=== PATIENT | female | born 1955 | race Caucasian/White ===

== ENCOUNTER → 2018-05-04 | Outpatient (CLI) | payer BC ==
[2018-05-04 11:03] LABS: ANION GAP 13 (5-19); BLOOD UREA NITROGEN 8 mg/dL (7-20); CALCIUM 9.8 mg/dL (8.4-10.2); CARBON DIOXIDE 29 mmol/L (22-30); CHLORIDE 97 mmol/L (98-107); GLUCOSE 93 mg/dL (75-110); SODIUM 138.7 mmol/L (137-145)
== END ==
LOC: OD 09:59
PROVIDERS: ATTEND Orthopaedic Surgery
DX: Z01.810 Encounter for preprocedural cardiovascular examination (principal); Z01.812 Encounter for preprocedural laboratory examination
CPT/HCPCS: 36415; 80048

== ENCOUNTER → 2018-05-06 | Outpatient (CLI) | payer BC ==
--- NOTE | 2018-05-08 10:11 | EKG REPORT ---
SEVERITY:- BORDERLINE ECG - SINUS RHYTHM VENTRICULAR PREMATURE COMPLEX BORDERLINE T ABNORMALITIES, INFERIOR LEADS : Confirmed by: Phyllis Pratt 08-May-2018 10:11:10
== END ==
LOC: OD 09:07
PROVIDERS: ATTEND Orthopaedic Surgery
DX: Z01.810 Encounter for preprocedural cardiovascular examination (principal); Z01.812 Encounter for preprocedural laboratory examination; Z01.818 Encounter for other preprocedural examination; M25.562 Pain in left knee
CPT/HCPCS: 36415; 84132; 93010

== ENCOUNTER → 2018-09-23 | Outpatient (CLI) | payer BC ==
--- NOTE | 2018-09-23 12:22 | RADIOLOGY REPORT (SQ) ---
EXAM DESCRIPTION: CHEST PA/LATERAL COMPLETED DATE/TIME: 09/23/2018 11:55 am REASON FOR STUDY: PRE-OP COMPARISON: None. EXAM PARAMETERS: NUMBER OF VIEWS: two views TECHNIQUE: Digital Frontal and Lateral radiographic views of the chest acquired. RADIATION DOSE: NA LIMITATIONS: none FINDINGS: LUNGS AND PLEURA: No opacities, masses or pneumothorax. No pleural effusion. MEDIASTINUM AND HILAR STRUCTURES: No masses or contour abnormalities. HEART AND VASCULAR STRUCTURES: Heart normal size. No evidence for failure. BONES: No acute findings. HARDWARE: None in the chest. OTHER: Breast implants. IMPRESSION: NO SIGNIFICANT RADIOGRAPHIC FINDING IN THE CHEST. TECHNICAL DOCUMENTATION: JOB ID: [id number] [employer]- All Rights Reserved Reading location - IP/workstation name: [email or web address]
[2018-09-23 12:49] LABS: ABSOLUTE EOSINOPHILS # (AUTO) 0.1 10^3/uL (0.0-0.6); ABSOLUTE LYMPHOCYTES (AUTO) 0.5 10^3/uL (0.5-4.7); ABSOLUTE MONOCYTES (AUTO) 0.3 10^3/uL (0.1-1.4); ABSOLUTE NEUT (AUTO) 2.7 10^3/uL (1.7-8.2); BASOPHILS % (AUTO) 0.6 % (0-2); EOSINOPHILS % (AUTO) 2.7 % (0-6); HEMATOCRIT 42.1 % (36.0-47.0); HEMOGLOBIN 14.9 g/dL (12.0-15.5); LYMPHOCYTES % (AUTO) 14.9 % (13-45); MEAN CORPUSCULAR HEMOGLOBIN 31.2 pg (27.0-33.4); MEAN CORPUSCULAR HGB CONC 35.3 g/dL (32.0-36.0); MEAN CORPUSCULAR VOLUME 88 fl (80-97); MONOCYTES % (AUTO) 7.6 % (3-13); PLATELET COUNT 112 10^3/uL (150-450); RED BLOOD COUNT 4.76 10^6/uL (3.72-5.28); RED CELL DISTRIBUTION WIDTH 13.1 % (11.5-14.0); SEGMENTED NEUTROPHILS % (AUTO) 74.2 % (42-78); TOTAL CELLS COUNTED % (AUTO) 100 %; WHITE BLOOD COUNT 3.6 10^3/uL (4.0-10.5)
[2018-09-23 12:53] LABS: APPEARANCE,URINE SLIGHTLY-CLOUDY; BILIRUBIN,URINE NEGATIVE (NEGATIVE); COLOR,URINE YELLOW; GLUCOSE, URINE NEGATIVE (NEGATIVE); KETONES,URINE NEGATIVE (NEGATIVE); LEUKOCYTE ESTERASE,URINE TRACE (NEGATIVE); NITRITE,URINE NEGATIVE (NEGATIVE); PROTEIN,URINE NEGATIVE (NEGATIVE); URINE SPECIFIC GRAVITY 1.015
--- NOTE | 2018-09-23 12:57 | EKG REPORT ---
SEVERITY:- BORDERLINE ECG - SINUS RHYTHM NONSPECIFIC ST-T CHANGES INFERIOR LEADS : Confirmed by: Tee Novoa MD 23-Sep-2018 12:56:27
[2018-09-23 13:13] LABS: ANION GAP 11 (5-19); BLOOD UREA NITROGEN 9 mg/dL (7-20); CALCIUM 9.1 mg/dL (8.4-10.2); CARBON DIOXIDE 21 mmol/L (22-30); CHLORIDE 107 mmol/L (98-107); GLUCOSE 93 mg/dL (75-110); POTASSIUM 4.3 mmol/L (3.6-5.0); SODIUM 138.9 mmol/L (137-145)
== END ==
LOC: OD 11:16
PROVIDERS: ATTEND Orthopaedic Surgery
DX: Z01.810 Encounter for preprocedural cardiovascular examination (principal)
CPT/HCPCS: 36415; 71046; 80048; 81001; 85025; 93005; 93010

== ENCOUNTER 2018-10-12 05:43 | Day surgery (SDC) | payer BC ==
[~2018-10-12 05:43] MED LIST: BUPIVACAINE INJ/PF LIPOSOME/PF 266 MG/20 ML SDV INJ PRN; CEFAZOLIN INJ 1 GM VIAL IV PRN; CEFAZOLIN INJ 1 GM VIAL ONE; IBUPROFEN 800 MG in NORMAL SALINE 250 ML IV PRN; LACTATED RINGERS 1000 ML IV PRN; LANSOPRAZOLE 15 MG TAB.RAP.DR ONE; LANSOPRAZOLE 15 MG TAB.RAP.DR PO PRN; LIDOCAINE 0.5% INJ-PF (5 MG/ML) 50 ML SDV SUBCUT PRN; OXYCODONE HCL SR 10 MG TABLET PO ONE; OXYCODONE HCL SR 10 MG TABLET PO PRN; VANCOMYCIN HCL 1,000 MG in DEXTROSE 5%-WATER 250 ML IV PRN
[2018-10-12] MEDS ORDERED: ONDANSETRON HCL INJ/PF 4 MG/2 ML SDV ONE (06:49)
[2018-10-12] MEDS ORDERED: PROPOFOL INJ 200 MG/20 ML VIAL IV ONE (06:49)
[2018-10-12] MEDS ORDERED: FENTANYL CITRATE INJ/PF 100 MCG/2 ML AMPUL ONE (06:49)
[2018-10-12] MEDS ORDERED: PROMETHAZINE HCL INJ 25 MG/1 ML VIAL ONE (06:49)
[2018-10-12] MEDS ORDERED: MIDAZOLAM 2 MG/2 ML INJ ONE (06:49)
[2018-10-12] MEDS ORDERED: EPHEDRINE SULFATE INJ 50 MG/1 ML AMPULE ONE (06:49)
[2018-10-12] MEDS ORDERED: ACETAMINOPHEN 1,000 MG/100 ML RTUPB IV ONE (06:49)
[2018-10-12] MEDS ORDERED: BUPIVACAINE HCL 0.5%-EPI 1:200000 INJ/PF 30 ML VIAL ONE (06:56)
[2018-10-12] MEDS ORDERED: THROMBIN (BOVINE) TOPICAL 20000 UNIT VIAL ONE (06:56)
[2018-10-12] MEDS ORDERED: THROMBIN (BOVINE) 5000 UNIT EPITAXIS KIT ONE (06:56)
[2018-10-12] MEDS ORDERED: SCOPOLAMINE HYDROBROMIDE 1.5 MG PATCH.TD72 ONE (07:24)
[2018-10-12] MEDS ORDERED: MEPERIDINE HCL/PF INJ 25 MG/1 ML DISP.SYRIN IV PRN (08:28)
[2018-10-12] MEDS ORDERED: PROMETHAZINE HCL INJ 25 MG/1 ML VIAL IV PRN ×2 (08:28)
[2018-10-12] MEDS ORDERED: FENTANYL CITRATE INJ/PF 100 MCG/2 ML AMPUL IV PRN ×3 (08:28)
[2018-10-12] MEDS ORDERED: MORPHINE SULFATE 10 MG/ML INJ IV PRN ×4 (08:28→08:36)
[2018-10-12] MEDS ORDERED: DIPHENHYDRAMINE HCL 50 MG/ML VIAL IV PRN ×2 (08:28→08:36)
[2018-10-12] MEDS ORDERED: MAG HYDROX/AL HYDROX/SIMETH SUSP 30 ML UDCUP PO PRN (08:36)
[2018-10-12] MEDS ORDERED: RINGERS SOLUTION,LACTATED 1,000 ML IV PRN (08:36)
[2018-10-12] MEDS ORDERED: OXYCODONE HCL IR 5 MG TABLET PO PRN (08:36)
[2018-10-12] MEDS ORDERED: ONDANSETRON HCL INJ/PF 4 MG/2 ML SDV IV PRN (08:36)
[2018-10-12] MEDS ORDERED: ACETAMINOPHEN 325 MG TABLET PO PRN (08:36)
[2018-10-12] MEDS ORDERED: ZOLPIDEM TARTRATE 5 MG TABLET PO PRN (08:36)
[2018-10-12] MEDS ORDERED: ONDANSETRON 4 MG TAB.RAPDIS PO PRN (08:36)
--- NOTE | 2018-10-12 08:42 | Operative Report ---
Operative Report DATE OF SURGERY: 10/12/18 PREOPERATIVE DIAGNOSIS: Left knee arthritis OPERATION: Left knee arthroplasty SURGEON: ROSEMARIE DORADO ANESTHESIA: Spinal TISSUE REMOVED OR ALTERED: Bone to pathology ESTIMATED BLOOD LOSS: 100 PROCEDURE: Implants used: Femur: Misa triathlon size 5 CR uncemented Tibia: 5 uncemented Tibial liner: 9 mm CS insert Patella: 85 mm uncemented patella Procedure with the patient supine on the operating table the left the limb is prepped and draped in a sterile fashion. The limb was elevated for exsanguination and the tourniquet inflated to 280 torr. A standard midline median parapatellar approach the knee is taken. Access is gained to the femoral canal through the intercondylar notch. Intramedullary alignment instrumentation used to resect 10 mm of distal femur in 5 of valgus. Sizing guide indicated a size 5 femur. Appropriate cutting jig is then used to fashion anterior posterior and chamfer cuts. A trial reduction femurs performed and this is judged to be adequate. Attention was next turned to the tibia. Using an extra medullary alignment system 9 millimeters was resected off the lateral tibial plateau. This is sized to a size 5 tibia. A trial reduction was now performed with a 5 femur and a 5 tibia using a[] millimeters spacer. It is full extension and central patellofemoral tracking. The articular surface the patella was next resected using an oscillating saw. All trial implants were removed. the above implants are impacted into place. the tourniquet was deflated hemostasis obtained the wound is then closed in layers using interrupted Vicryl followed by peggy. A sterile compressive dressing was applied and the patient returned to recovery room in satisfactory condition.
[2018-10-12] MEDS ORDERED: TRANEXAMIC ACID INJ/PF 1,000 MG/10 ML SDV IV ONE ×2 (08:46→10:01)
[2018-10-12] MEDS ORDERED: TRANEXAMIC ACID INJ/PF 1,000 MG/10 ML SDV IV PRN (08:54)
--- NOTE | 2018-10-12 09:46 | RADIOLOGY REPORT (SQ) ---
EXAM DESCRIPTION: KNEE LEFT 2 VIEWS COMPLETED DATE/TIME: 10/12/2018 9:30 am REASON FOR STUDY: Post OP -Long Cassette in PACU M17.12 UNILATERAL PRIMARY OSTEOARTHRITIS, LEFT KNE E COMPARISON: None. NUMBER OF VIEWS: Two view(s). TECHNIQUE: Digital radiographic images of the left knee post-procedure. LIMITATIONS: None. FINDINGS: BONES: No worrisome or unexpected findings post-procedure. DEVICE: Total knee arthroplasty. SOFT TISSUES: No worrisome findings. Expected postoperative soft tissue changes. IMPRESSION: SATISFACTORY POSTOPERATIVE LEFT KNEE. TECHNICAL DOCUMENTATION: JOB ID: [id number] [employer]- All Rights Reserved Reading location - IP/workstation name: [email or web address]
[2018-10-12] MEDS ORDERED: (PENDING PHARMACY ID) (Estradiol [Estradiol] 1 MG) PO SCH (10:00)
[2018-10-12] MEDS: TRANEXAMIC ACID INJ/PF 1,000 MG/10 ML SDV IV ONE ×2 (10:30→17:03)
[2018-10-12] MEDS: MORPHINE SULFATE 10 MG/ML INJ IV PRN ×3 (13:11→22:11)
[2018-10-12] MEDS: IBUPROFEN 800 MG in NORMAL SALINE 250 ML IV SCH (15:32)
[2018-10-12] MEDS ORDERED: FLUCONAZOLE 100 MG TABLET PO ONE (16:00)
[2018-10-12] MEDS: SENNOSIDES/DOCUSATE 8.6-50 MG 1 EACH TABLET PO SCH (17:31)
[2018-10-12] MEDS: OXYCODONE HCL SR 10 MG TABLET PO SCH (17:31)
[2018-10-12] MEDS ORDERED: ASPIRIN 81 MG TABLET, ENT COATED PO SCH (18:00)
[2018-10-12] MEDS ORDERED: VANCOMYCIN HCL 1,000 MG in DEXTROSE 5%-WATER 250 ML IV ONE (20:30)
[2018-10-13] MEDS: IBUPROFEN 800 MG in NORMAL SALINE 250 ML IV SCH ×2 (00:21→05:31)
[2018-10-13] MEDS: OXYCODONE HCL SR 10 MG TABLET PO SCH (05:29)
[2018-10-13] MEDS ORDERED: LANSOPRAZOLE 30 MG TAB.RAP.DR PO SCH (06:00)
[2018-10-13 06:08] LABS: HEMATOCRIT 32.3 % (36.0-47.0); HEMOGLOBIN 11.7 g/dL (12.0-15.5); MEAN CORPUSCULAR HEMOGLOBIN 31.6 pg (27.0-33.4); MEAN CORPUSCULAR HGB CONC 36.3 g/dL (32.0-36.0); MEAN CORPUSCULAR VOLUME 87 fl (80-97); RED BLOOD COUNT 3.71 10^6/uL (3.72-5.28); RED CELL DISTRIBUTION WIDTH 12.7 % (11.5-14.0); WHITE BLOOD COUNT 4.1 10^3/uL (4.0-10.5)
[2018-10-13 06:29] LABS: ANION GAP 9 (5-19); BLOOD UREA NITROGEN 13 mg/dL (7-20); CALCIUM 8.9 mg/dL (8.4-10.2); CARBON DIOXIDE 24 mmol/L (22-30); CHLORIDE 99 mmol/L (98-107); GLUCOSE 126 mg/dL (75-110); SODIUM 132.4 mmol/L (137-145)
--- NOTE | 2018-10-13 07:14 | PDOC DISCHARGE SUMMARY ---
General - Admit/Disc Date/PCP Admission Date/Primary Care Provider: 10/12/18 05:43 MELI SANDOVAL PA-C Discharge Date: 10/13/18 - Discharge Diagnosis (1) Arthritis of left knee Is this a current diagnosis for this admission?: Yes - Additional Information Resuscitation Status: Full Code Home Medications: Amlodipine Besylate [Norvasc 5 mg Tablet] 5 mg PO DAILY 09/24/18 Chlorpheniramine Maleate [Chlor-Trimeton Allergy 12 mg Tablet] 1 tab PO DAILYP PRN 09/24/18 Clonazepam [Klonopin] 0.5 mg PO BIDP PRN 09/24/18 Diclofenac Sodium [Voltaren] 1 applic TOP QID PRN 09/24/18 Estradiol 1 mg PO DAILY 09/24/18 Medroxyprogesterone Acetate [Provera] 2.5 mg PO DAILY 09/24/18 Omeprazole 20 mg PO BID 09/24/18 Sertraline HCl [Zoloft 50 mg Tablet] 100 mg PO DAILY 09/24/18 Tramadol HCl [Ultram] 50 mg PO TIDP PRN 09/24/18 Hydrochlorothiazide [Hydrodiuril 25 mg Tablet] 25 mg PO DAILY 10/12/18 History of Present Illness History of Present Illness: ELFEGO GALLEGOS is a 63 year old female 63-year-old white female with progressive left knee pain and functional disability second osteoarthritis. Patient is admitted for elective left knee arthroplasty. Hospital Course Hospital Course: Patient is admitted through the operating room where she undergoes an uncomplicated left knee arthroplasty. She is returned to floor in satisfactory condition. Initially there is some bleeding from her dressing and this is reinforced. She makes excellent progress with physical therapy and ablating 200 feet on the day of surgery. Dressing is changed on postop day 2. Wound is well approximated peggy. Is clean dry and intact. Physical Exam Vital Signs: Temp Pulse Resp BP Pulse Ox 36.9 C 78 18 114/69 98 10/12/18 23:28 10/12/18 23:28 10/12/18 19:38 10/12/18 23:28 10/12/18 23:28 Intake & Output 10/12/18 10/13/18 10/14/18 06:59 06:59 06:59 Intake Total 0 5543 Output Total 75 Balance 0 5468 Weight 78.93 kg 78 kg General appearance: PRESENT: no acute distress Head exam: PRESENT: normocephalic Respiratory exam: PRESENT: unlabored Cardiovascular exam: PRESENT: RRR Pulses: PRESENT: +1 pedal pulses bilateral Vascular exam: PRESENT: normal capillary refill GI/Abdominal exam: PRESENT: soft Rectal exam: PRESENT: deferred Extremities exam: PRESENT: other - Left knee dressing is changed on postop day 1. Was. Wound is well approximated peggy. Is clean dry and intact. Neurological exam: PRESENT: alert, awake, oriented to person, oriented to place, oriented to time, oriented to situation. ABSENT: motor sensory deficit Skin exam: PRESENT: dry, intact, warm. ABSENT: cyanosis, rash Results Laboratory Results: 10/13/18 05:50 10/13/18 05:50 Sodium 132.4 L Potassium 3.0 L* Chloride 99 Carbon Dioxide 24 Anion Gap 9 BUN 13 Creatinine 0.63 Est GFR ( Amer) > 60 Est GFR (Non-Af Amer) > 60 Glucose 126 H Calcium 8.9 Impressions: Knee X-Ray 10/12/18 08:38 IMPRESSION: SATISFACTORY POSTOPERATIVE LEFT KNEE. Status: Imported from [facility] - * PATIENT BEING DISCHARGED WITH ANY OF THE FOLLOWING DIAGNOSIS: No VTE patient discharged on overlapping Therapy?: Yes Plan Discharge Plan: Patient to be discharged home with home health services and DME. Follow-up with Dr. Calderon Romo [place] for surgery in 2 weeks for staple removal. Time Spent: Less than 30 Minutes
[2018-10-13 07:41] LABS: PLATELET COUNT 85 10^3/uL (150-450)
[2018-10-13] MEDS: SENNOSIDES/DOCUSATE 8.6-50 MG 1 EACH TABLET PO SCH (09:53)
[2018-10-13] MEDS ORDERED: PRENATAL VITAMIN W DHA CAPSULE PO SCH (10:00)
[2018-10-13] MEDS ORDERED: SERTRALINE HCL 50 MG TABLET PO SCH (10:00)
[2018-10-13] MEDS ORDERED: MEDROXYPROGESTERONE ACET 2.5 MG TABLET PO SCH (10:00)
[2018-10-13] MEDS ORDERED: AMLODIPINE BESYLATE 5 MG TABLET PO SCH (10:00)
[2018-10-13 10:46] VITALS: BP 107/68
== END 2018-10-13 11:18 | disposition home health service (06) ==
LOC: OROUT 05:43 → UNDOADMIN 05:43 → 4S 05:43 → INOR 05:43 → EDSTATUS 07:30 → 4S 10:15 → INOR 10:15 → OROUT 10-13 11:18 → UNDODISIN 10-13 11:18
PROVIDERS: ATTEND Orthopaedic Surgery
DX: M17.12 Unilateral primary osteoarthritis, left knee (principal); K21.9 Gastro-esophageal reflux disease without esophagitis; F32.9 Major depressive disorder, single episode, unspecified; I10 Essential (primary) hypertension; M54.5 Low back pain; F41.9 Anxiety disorder, unspecified; Z79.899 Other long term (current) drug therapy; Z82.3 Family history of stroke; Z80.1 Family history of malignant neoplasm of trachea, bronchus and lung; Z80.0 Family history of malignant neoplasm of digestive organs
CPT/HCPCS: 36415; 85027; 80048; 88305 ×2; 88311; 73560; 94799; 97530; 97110 ×2; 97116 ×2; 97163; 97535; 97166; 27442; C1776; J2250; J3490 ×7; J0690; J2270; J2550; J2405; J7060; J7050; J2704; J3370; J0131; J1741; 01402; J3010

== ENCOUNTER → 2019-06-11 | Outpatient (CLI) | payer BC ==
[2019-06-11 09:52] LABS: ABSOLUTE EOSINOPHILS # (AUTO) 0.1 10^3/uL (0.0-0.6); ABSOLUTE LYMPHOCYTES (AUTO) 0.6 10^3/uL (0.5-4.7); ABSOLUTE MONOCYTES (AUTO) 0.2 10^3/uL (0.1-1.4); ABSOLUTE NEUT (AUTO) 1.8 10^3/uL (1.7-8.2); BASOPHILS % (AUTO) 0.6 % (0-2); EOSINOPHILS % (AUTO) 3.3 % (0-6); HEMATOCRIT 41.4 % (36.0-47.0); HEMOGLOBIN 14.5 g/dL (12.0-15.5); LYMPHOCYTES % (AUTO) 20.7 % (13-45); MEAN CORPUSCULAR HEMOGLOBIN 30.8 pg (27.0-33.4); MEAN CORPUSCULAR HGB CONC 35.1 g/dL (32.0-36.0); MEAN CORPUSCULAR VOLUME 88 fl (80-97); MONOCYTES % (AUTO) 9.3 % (3-13); RED BLOOD COUNT 4.72 10^6/uL (3.72-5.28); RED CELL DISTRIBUTION WIDTH 13.6 % (11.5-14.0); SEGMENTED NEUTROPHILS % (AUTO) 66.1 % (42-78); TOTAL CELLS COUNTED % (AUTO) 100 %; WHITE BLOOD COUNT 2.7 10^3/uL (4.0-10.5)
[2019-06-11 09:56] LABS: APPEARANCE,URINE SLIGHTLY-CLOUDY; BILIRUBIN,URINE NEGATIVE (NEGATIVE); COLOR,URINE YELLOW; GLUCOSE, URINE NEGATIVE (NEGATIVE); KETONES,URINE NEGATIVE (NEGATIVE); LEUKOCYTE ESTERASE,URINE MODERATE (NEGATIVE); NITRITE,URINE POSITIVE (NEGATIVE); PROTEIN,URINE NEGATIVE (NEGATIVE); URINE SPECIFIC GRAVITY 1.015
--- NOTE | 2019-06-11 10:03 | RADIOLOGY REPORT (SQ) ---
EXAM DESCRIPTION: CHEST PA/LATERAL COMPLETED DATE/TIME: 06/11/2019 9:34 am REASON FOR STUDY: PRE-OP COMPARISON: 09/23/2018 EXAM PARAMETERS: NUMBER OF VIEWS: two views TECHNIQUE: Digital Frontal and Lateral radiographic views of the chest acquired. RADIATION DOSE: NA LIMITATIONS: none FINDINGS: LUNGS AND PLEURA: No opacities, masses or pneumothorax. No pleural effusion. MEDIASTINUM AND HILAR STRUCTURES: No masses or contour abnormalities. HEART AND VASCULAR STRUCTURES: Heart normal size. No evidence for failure. BONES: No acute findings. HARDWARE: None in the chest. OTHER: Calcified breast implants are again noted. IMPRESSION: NO SIGNIFICANT RADIOGRAPHIC FINDING IN THE CHEST. TECHNICAL DOCUMENTATION: JOB ID: [id number] [employer]- All Rights Reserved Reading location - IP/workstation name: [email or web address]
[2019-06-11 10:09] LABS: ANION GAP 10 (5-19); BLOOD UREA NITROGEN 12 mg/dL (7-20); CALCIUM 9.1 mg/dL (8.4-10.2); CARBON DIOXIDE 26 mmol/L (22-30); CHLORIDE 104 mmol/L (98-107); GLUCOSE 48 mg/dL (75-110); POTASSIUM 3.3 mmol/L (3.6-5.0)
[2019-06-11 10:44] LABS: PLATELET COUNT 89 10^3/uL (150-450)
--- NOTE | 2019-06-12 21:33 | EKG REPORT ---
SEVERITY:- ABNORMAL ECG - SINUS RHYTHM BASELINE ARTIFACTS : Confirmed by: Phyllis Pratt 12-Jun-2019 21:32:20
== END ==
LOC: OD 08:56
PROVIDERS: ATTEND Orthopaedic Surgery
DX: Z01.810 Encounter for preprocedural cardiovascular examination (principal); Z01.811 Encounter for preprocedural respiratory examination; Z01.812 Encounter for preprocedural laboratory examination; M17.11 Unilateral primary osteoarthritis, right knee; I10 Essential (primary) hypertension
CPT/HCPCS: 36415; 71046; 80048; 81001; 85025; 93005; 93010

== ENCOUNTER 2019-06-28 06:34 | Inpatient (IN) | payer BC ==
[~2019-06-28 06:34] MED LIST changes: -CEFAZOLIN INJ 1 GM VIAL ONE; -LANSOPRAZOLE 15 MG TAB.RAP.DR ONE; -LANSOPRAZOLE 15 MG TAB.RAP.DR PO PRN; -OXYCODONE HCL SR 10 MG TABLET PO ONE; +PANTOPRAZOLE SODIUM 20 MG TABLET.DR PO PRN
[2019-06-28] MEDS ORDERED: MIDAZOLAM 2 MG/2 ML INJ ONE (06:39)
[2019-06-28] MEDS ORDERED: TRANEXAMIC ACID INJ/PF 1,000 MG/10 ML SDV ONE (06:39)
[2019-06-28] MEDS ORDERED: MORPHINE SULFATE 10 MG/ML INJ ONE (06:39)
[2019-06-28] MEDS ORDERED: FENTANYL CITRATE INJ/PF 100 MCG/2 ML AMPUL ONE (06:39)
[2019-06-28] MEDS ORDERED: ONDANSETRON HCL INJ/PF 4 MG/2 ML SDV ONE (06:39)
[2019-06-28] MEDS ORDERED: PROPOFOL INJ 200 MG/20 ML VIAL IV ONE (06:39)
[2019-06-28] MEDS ORDERED: DEXAMETHASONE SOD PHOSPHATE INJ 4 MG/1 ML VIAL ONE (06:39)
[2019-06-28] MEDS ORDERED: OXYCODONE HCL SR 10 MG TABLET PO ONE (07:08)
[2019-06-28] MEDS ORDERED: CEFAZOLIN INJ 1 GM VIAL ONE (07:08)
[2019-06-28] MEDS ORDERED: PANTOPRAZOLE SODIUM 20 MG TABLET.DR PO ONE (07:08)
[2019-06-28] MEDS ORDERED: MEPERIDINE HCL/PF INJ 25 MG/1 ML DISP.SYRIN IV PRN (07:57)
[2019-06-28] MEDS ORDERED: PROMETHAZINE HCL INJ 25 MG/1 ML VIAL IV PRN ×2 (07:57)
[2019-06-28] MEDS ORDERED: ONDANSETRON HCL INJ/PF 4 MG/2 ML SDV IV PRN ×2 (07:57→08:28)
[2019-06-28] MEDS ORDERED: FENTANYL CITRATE INJ/PF 100 MCG/2 ML AMPUL IV PRN ×3 (07:57)
[2019-06-28] MEDS ORDERED: DIPHENHYDRAMINE HCL 50 MG/ML VIAL IV PRN ×2 (07:57→08:28)
--- NOTE | 2019-06-28 08:26 | Operative Report ---
Operative Report DATE OF SURGERY: 06/28/19 PREOPERATIVE DIAGNOSIS: Right knee arthritis OPERATION: Right knee arthroplasty SURGEON: ROSEMARIE DORADO ANESTHESIA: Spinal TISSUE REMOVED OR ALTERED: Bone to pathology ESTIMATED BLOOD LOSS: 75 PROCEDURE: Implants used: Femur: s[employer]yker triathlon size 5 uncemented CR femur Tibia: 5 uncemented tibia Tibial liner: 9 mm CS insert Patella: 35 mm uncemented patella Procedure with the patient supine on the operating table the right the limb is prepped and draped in a sterile fashion. The limb was elevated for exsanguination and the tourniquet inflated to 280 torr. A standard midline median parapatellar approach the knee is taken. Access is gained to the femoral canal through the intercondylar notch. Intramedullary alignment instrumentation used to resect 10 mm of distal femur in 5 of valgus. Sizing guide indicated a size 5 femur. Appropriate cutting jig is then used to fashion anterior posterior and chamfer cuts. A trial reduction femurs performed and this is judged to be adequate. Attention was next turned to the tibia. Using an extra medullary alignment system 9 millimeters was resected off the lateral tibial plateau. This is sized to a size 5 tibia. A trial reduction was now performed with a 5 femur and a 5 tibia using a 9 millimeters spacer. It is full extension and central patellofemoral tracking. The articular surface the patella was next resected using an oscillating saw. All trial implants were removed. The above implants are impacted into place. The tourniquet was deflated hemostasis obtained the wound is then closed in layers using interrupted Vicryl followed by peggy. A sterile compressive dressing was applied and the patient returned to recovery room in satisfactory condition.
[2019-06-28] MEDS ORDERED: [UNRECOGNIZED DRUG - REMARK] PO PRN (08:27)
[2019-06-28] MEDS ORDERED: ZOLPIDEM TARTRATE 5 MG TABLET PO PRN (08:28)
[2019-06-28] MEDS ORDERED: OXYCODONE HCL IR 5 MG TABLET PO PRN (08:28)
[2019-06-28] MEDS ORDERED: MAG HYDROX/AL HYDROX/SIMETH SUSP 30 ML UDCUP PO PRN (08:28)
[2019-06-28] MEDS ORDERED: RINGERS SOLUTION,LACTATED 1,000 ML IV PRN (08:28)
[2019-06-28] MEDS ORDERED: ONDANSETRON 4 MG TAB.RAPDIS PO PRN (08:28)
--- NOTE | 2019-06-28 09:51 | RADIOLOGY REPORT (SQ) ---
EXAM DESCRIPTION: KNEE RIGHT 2 VIEWS COMPLETED DATE/TIME: 06/28/2019 9:08 am REASON FOR STUDY: Post OP -Long Cassette in PACU M17.11 UNILATERAL PRIMARY OSTEOARTHRITIS, RIGHT KN EE COMPARISON: None. NUMBER OF VIEWS: Two views TECHNIQUE: Digital radiographic images of the right knee post-procedure. LIMITATIONS: None. FINDINGS: BONES: No worrisome or unexpected findings post-procedure. DEVICE: Total knee arthroplasty SOFT TISSUES: No worrisome findings. Expected postoperative soft tissue changes. IMPRESSION: SATISFACTORY POSTOPERATIVE RIGHT KNEE. TECHNICAL DOCUMENTATION: JOB ID: [id number] [employer]- All Rights Reserved Reading location - IP/workstation name: [email or web address]
[2019-06-28] MEDS ORDERED: (PENDING PHARMACY ID) (Estradiol [Estradiol] 1 MG) PO SCH (10:00)
[2019-06-28] MEDS: OXYCODONE HCL SR 10 MG TABLET PO SCH ×2 (10:00→21:22)
[2019-06-28] MEDS ORDERED: TRANEXAMIC ACID INJ/PF 1,000 MG/10 ML SDV IV ONE (10:30)
[2019-06-28] MEDS: PRENATAL VITAMIN W DHA CAPSULE PO SCH (10:56)
[2019-06-28] MEDS: ACETAMINOPHEN 325 MG TABLET PO PRN ×2 (10:56→19:54)
[2019-06-28] MEDS: SENNOSIDES/DOCUSATE 8.6-50 MG 1 EACH TABLET PO SCH ×2 (10:57→18:29)
[2019-06-28] MEDS: ASPIRIN 81 MG TABLET, ENT COATED PO SCH (11:09)
[2019-06-28] MEDS: IBUPROFEN 800 MG in NORMAL SALINE 250 ML IV SCH ×2 (15:04→21:22)
[2019-06-28] MEDS ORDERED: CHLORPHENIRAMINE MALEATE 4 MG TABLET PO PRN ×2 (15:22→15:30)
[2019-06-28] MEDS ORDERED: PANTOPRAZOLE SODIUM 20 MG TABLET.DR PO SCH (18:00)
[2019-06-28] MEDS: OXYCODONE HCL IR 5 MG TABLET PO PRN (18:29)
[2019-06-28] MEDS: HYDROCHLOROTHIAZIDE 25 MG TABLET PO SCH (18:33)
[2019-06-28] MEDS: MEDROXYPROGESTERONE ACET 2.5 MG TABLET PO SCH (18:33)
[2019-06-28] MEDS: AMLODIPINE BESYLATE 5 MG TABLET PO SCH (18:33)
[2019-06-28] MEDS ORDERED: INFLUENZA QUAD (6MOS+) 2019-20 VAC 0.5 ML SYR IM ONE (19:52)
[2019-06-28] MEDS ORDERED: VANCOMYCIN HCL 1,000 MG in DEXTROSE 5%-WATER 250 ML IV ONE (20:30)
[2019-06-29] MEDS: IBUPROFEN 800 MG in NORMAL SALINE 250 ML IV SCH (05:23)
[2019-06-29 05:33] LABS: HEMATOCRIT 34.5 % (36.0-47.0); HEMOGLOBIN 12.1 g/dL (12.0-15.5); MEAN CORPUSCULAR HEMOGLOBIN 30.9 pg (27.0-33.4); MEAN CORPUSCULAR HGB CONC 35.2 g/dL (32.0-36.0); MEAN CORPUSCULAR VOLUME 88 fl (80-97); RED BLOOD COUNT 3.92 10^6/uL (3.72-5.28); RED CELL DISTRIBUTION WIDTH 13.5 % (11.5-14.0); WHITE BLOOD COUNT 5.4 10^3/uL (4.0-10.5)
[2019-06-29 05:55] LABS: ANION GAP 8 (5-19); BLOOD UREA NITROGEN 12 mg/dL (7-20); CARBON DIOXIDE 25 mmol/L (22-30); CHLORIDE 104 mmol/L (98-107); GLUCOSE 124 mg/dL (75-110); POTASSIUM 3.6 mmol/L (3.6-5.0)
[2019-06-29] MEDS ORDERED: PANTOPRAZOLE SODIUM 40 MG TABLET.DR PO SCH (06:00)
[2019-06-29 06:31] LABS: PLATELET COUNT 94 10^3/uL (150-450)
--- NOTE | 2019-06-29 07:05 | PDOC DISCHARGE SUMMARY ---
Impression - Admit/DC Date/PCP Admission Date/Primary Care Provider: 06/28/19 06:34 [facility] Dis[facility] Date: 06/29/19 - Additional Information Resuscitation Status: Full Code Referrals: ROSEMARIE DORADO MD [ACTIVE STAFF] - Home Medications: Amlodipine Besylate [Norvasc 5 mg Tablet] 5 mg PO DAILY 06/28/19 Chlorpheniramine Maleate [Chlor-Trimeton Allergy 12 mg Tablet] 1 tab PO DAILYP PRN 06/28/19 Estradiol 1 mg PO DAILY 06/28/19 Hydrochlorothiazide [Hydrodiuril 25 mg Tablet] 25 mg PO DAILY 06/28/19 Medroxyprogesterone Acetate [Provera] 2.5 mg PO DAILY 06/28/19 Omeprazole 20 mg PO BID 06/28/19 Tramadol HCl [Ultram 50 mg Tablet] 50 mg PO TIDP PRN 06/28/19 History of Present Illiness History of Present Illness: ELFEGO GALELGOS is a 64 year old female 64-year-old white female with progressive right knee pain and functional disability second osteoarthritis. Patient is admitted for elective right knee arthroplasty. Hospital Course Hospital Course: She is admitted through the patient is admitted through the operating where she undergoes unconjugated right knee arthroplasty. She is returned to floor in satisfactory condition. She is seen by physical therapy and ambulates 350 feet on the day of surgery. Compressive dressing was removed on the first postope rative morning. Underlying OpSite dressings clean dry and intact. Physical Exam Vital Signs: Temp Pulse Resp BP Pulse Ox 36.7 C 75 17 123/62 99 06/28/19 23:53 06/28/19 23:53 06/28/19 23:53 06/28/19 23:53 06/28/19 23:53 Intake & Output 06/28/19 06/29/19 06/30/19 06:59 06:59 06:59 Intake Total 2337 Output Total 500 Balance 1837 Weight 79 kg 92 kg General appearance: PRESENT: no acute distress Head exam: PRESENT: normocephalic Respiratory exam: PRESENT: unlabored Cardiovascular exam: PRESENT: RRR Pulses: PRESENT: +1 pedal pulses bilateral GI/Abdominal exam: PRESENT: soft Rectal exam: PRESENT: deferred Musculoskeletal exam: PRESENT: other - Right knee OpSite dressings clean dry and intact. Minimal pedal edema. Distal neurovascular examination is intact. Neurological exam: PRESENT: alert, awake, oriented to person, oriented to place, oriented to time, oriented to situation. ABSENT: motor sensory deficit Psychiatric exam: PRESENT: appropriate affect, normal mood. ABSENT: homicidal ideation, suicidal ideation Skin exam: PRESENT: dry, intact, warm. ABSENT: cyanosis, rash Results Laboratory Results: WBC 5.4 10^3/uL (4.0-10.5) 06/29/19 04:42 RBC 3.92 10^6/uL (3.72-5.28) 06/29/19 04:42 Hgb 12.1 g/dL (12.0-15.5) 06/29/19 04:42 Hct 34.5 % (36.0-47.0) L 06/29/19 04:42 MCV 88 fl (80-97) 06/29/19 04:42 MCH 30.9 pg (27.0-33.4) 06/29/19 04:42 MCHC 35.2 g/dL (32.0-36.0) 06/29/19 04:42 RDW 13.5 % (11.5-14.0) 06/29/19 04:42 Plt Count 94 10^3/uL (150-450) L 06/29/19 04:42 Sodium 136.9 mmol/L (137-145) L 06/29/19 04:42 Potassium 3.6 mmol/L (3.6-5.0) 06/29/19 04:42 Chloride 104 mmol/L (98-107) 06/29/19 04:42 Carbon Dioxide 25 mmol/L (22-30) 06/29/19 04:42 Anion Gap 8 (5-19) 06/29/19 04:42 BUN 12 mg/dL (7-20) 06/29/19 04:42 Creatinine 0.67 mg/dL (0.52-1.25) 06/29/19 04:42 Est GFR ( Amer) > 60 (>60) 06/29/19 04:42 Est GFR (MDRD) Non-Af > 60 (>60) 06/29/19 04:42 Glucose 124 mg/dL (75-110) H 06/29/19 04:42 Calcium 9.0 mg/dL (8.4-10.2) 06/29/19 04:42 Impressions: Knee X-Ray 06/28/19 08:30 IMPRESSION: SATISFACTORY POSTOPERATIVE RIGHT KNEE. Plan Plan of Treatment: Patient be discharged home with home health services and DME. Follow-up with Dr. Calderon Romo [place] for surgery in 2 weeks for staple removal. Stroke Is this a Stroke Patient?: No Stroke Pt being discharged on Anti-thrombolytic therapy?: Yes Acute Heart Failure - Is this a Heart Failure Patient?: No
[2019-06-29] MEDS: OXYCODONE HCL IR 5 MG TABLET PO PRN (08:25)
[2019-06-29] MEDS: OXYCODONE HCL SR 10 MG TABLET PO SCH (10:38)
[2019-06-29] MEDS: ASPIRIN 81 MG TABLET, ENT COATED PO SCH (10:39)
[2019-06-29] MEDS: MEDROXYPROGESTERONE ACET 2.5 MG TABLET PO SCH (10:39)
[2019-06-29] MEDS: HYDROCHLOROTHIAZIDE 25 MG TABLET PO SCH (10:39)
[2019-06-29] MEDS: AMLODIPINE BESYLATE 5 MG TABLET PO SCH (10:40)
[2019-06-29] MEDS: SENNOSIDES/DOCUSATE 8.6-50 MG 1 EACH TABLET PO SCH (10:40)
[2019-06-29] MEDS: PRENATAL VITAMIN W DHA CAPSULE PO SCH (10:41)
[2019-06-29 11:25] VITALS: BP 128/80
== END 2019-06-29 12:05 | disposition home health service (06) | DRG 470 ==
LOC: INOR 06:34 → 4S 09:35
PROVIDERS: ADMIT Orthopaedic Surgery; ATTEND Orthopaedic Surgery
PROC: 0SRC0JA Replacement of Right Knee Joint with Synthetic Substitute, Uncemented, Open Approach (ICD-10-PCS; principal; 2019-06-28 07:30)
PROC: 3E02340 Introduction of Influenza Vaccine into Muscle, Percutaneous Approach (ICD-10-PCS; 2019-06-29)
DX: M17.11 Unilateral primary osteoarthritis, right knee (principal); K21.9 Gastro-esophageal reflux disease without esophagitis; F32.9 Major depressive disorder, single episode, unspecified; I10 Essential (primary) hypertension; F41.9 Anxiety disorder, unspecified; Z23 Encounter for immunization
CPT/HCPCS: 01402; 36415; 80048; 84132; 85027; 88304; 88305; 88311; 90686; 94799; J0690; J1100; J1741; J2250; J2270; J2405; J2704; J3010; J3370; J3490; J7050; J7060

== ENCOUNTER → 2020-05-09 | Outpatient (CLI) | payer MEDICARE, OTHER ==
[2020-05-09 11:40] LABS: HEMATOCRIT 44.4 % (36.0-47.0); HEMOGLOBIN 15.9 g/dL (12.0-15.5); MEAN CORPUSCULAR HEMOGLOBIN 31.8 pg (27.0-33.4); MEAN CORPUSCULAR HGB CONC 35.8 g/dL (32.0-36.0); MEAN CORPUSCULAR VOLUME 89 fl (80-97); PLATELET COUNT 111 10^3/uL (150-450); RED CELL DISTRIBUTION WIDTH 13.7 % (11.5-14.0); WHITE BLOOD COUNT 5.2 10^3/uL (4.0-10.5)
[2020-05-09 12:29] LABS: ERYTHROCYTE SEDIMENTATION RATE 10 mm/hr (0-30)
== END ==
LOC: OD 09:33
PROVIDERS: ATTEND Family Medicine
DX: M25.561 Pain in right knee (principal)
CPT/HCPCS: 36415; 85027; 85652; 86140

== ENCOUNTER → 2020-05-16 | Outpatient (CLI) | payer MEDICARE, OTHER ==
--- NOTE | 2020-05-17 16:23 | RADIOLOGY REPORT (SQ) ---
EXAM DESCRIPTION: NM 3 PHASE BONE SCAN IMAGES COMPLETED DATE/TIME: 05/16/2020 2:00 pm REASON FOR STUDY: M25.561 PAIN IN RIGHT KNEE, Z96.651 PRESENCE OF RIGHT ARTIFICIAL KNEE JOINT M25.56 1 PAIN IN RIGHT KNEE Z96.651 PRESENCE OF RIGHT ARTIFICIAL KNEE JOINT COMPARISON: Conventional radiographs dated 05/09/2020 and 06/28/2019 RADIONUCLIDE AND DOSE: 21.7 millicuries Tc99m MDP. The route of agent administration: Intravenous. ADDITIONAL DRUGS AND DOSES: None. TECHNIQUE: Following injection of the radiopharmaceutical, serial blood flow images acquired. Equil ibrium blood pool images then acquired. Routine delayed images at 3 hour acquired of the areas of cl inical concern with additional focused images as needed. AREA OF INTEREST: Right knee LIMITATIONS: None. FINDINGS: VASCULAR FLOW IMAGES: No asymmetry or focal areas of hyperemia. BLOOD POOL IMAGES: Blood pool images demonstrate slight increase activity on the right compared to th e left. This is most prominent surrounding the tibial prosthetic component. BONES: Delayed images demonstrate uptake bilaterally more prominent on the left than the right. Agai n activity is more prominent along the tibial plateau. No significant uptake is seen in the femoral component. KIDNEYS: Kidneys not imaged. OTHER: No other significant finding. IMPRESSION: Nonspecific findings. Mild increased activity in the right knee on blood pool images. There is uptake in the tibial components of both knees on delayed images left greater than right. Fl ow images are symmetric. COMMENT: Quality measure 147: Current bone scan is compared with any available plain radiographs, p rior bone scans, and CT/MRI. TECHNICAL DOCUMENTATION: JOB ID: [id number] 2010 [employer]- All Rights Reserved Reading location - IP/workstation name: [email or web address]
== END ==
LOC: RAD 08:38
PROVIDERS: ATTEND Family Medicine
DX: M25.561 Pain in right knee (principal)
CPT/HCPCS: 78315; A9503; Q9969

== ENCOUNTER → 2020-05-18 | Outpatient (CLI) | payer MEDICARE, OTHER ==
--- NOTE | 2020-05-18 08:58 | EKG REPORT ---
SEVERITY:- ABNORMAL ECG - SINUS RHYTHM NONSPECIFIC T ABNORMALITIES, INFERIOR LEADS : Confirmed by: Phyllis Pratt 18-May-2020 08:57:13
[2020-05-18 10:03] LABS: ABSOLUTE EOSINOPHILS # (AUTO) 0.1 10^3/uL (0.0-0.6); ABSOLUTE LYMPHOCYTES (AUTO) 0.8 10^3/uL (0.5-4.7); ABSOLUTE MONOCYTES (AUTO) 0.5 10^3/uL (0.1-1.4); ABSOLUTE NEUT (AUTO) 5.1 10^3/uL (1.7-8.2); BASOPHILS % (AUTO) 0.3 % (0-2); EOSINOPHILS % (AUTO) 1.7 % (0-6); HEMATOCRIT 42.3 % (36.0-47.0); HEMOGLOBIN 15.1 g/dL (12.0-15.5); LYMPHOCYTES % (AUTO) 12.5 % (13-45); MEAN CORPUSCULAR HEMOGLOBIN 31.7 pg (27.0-33.4); MEAN CORPUSCULAR HGB CONC 35.7 g/dL (32.0-36.0); MEAN CORPUSCULAR VOLUME 89 fl (80-97); MONOCYTES % (AUTO) 8.2 % (3-13); PLATELET COUNT 121 10^3/uL (150-450); RED BLOOD COUNT 4.76 10^6/uL (3.72-5.28); RED CELL DISTRIBUTION WIDTH 13.7 % (11.5-14.0); SEGMENTED NEUTROPHILS % (AUTO) 77.3 % (42-78); TOTAL CELLS COUNTED % (AUTO) 100 %; WHITE BLOOD COUNT 6.6 10^3/uL (4.0-10.5)
[2020-05-18 10:09] LABS: APPEARANCE,URINE SLIGHTLY-CLOUDY; BILIRUBIN,URINE NEGATIVE (NEGATIVE); COLOR,URINE YELLOW; GLUCOSE, URINE NEGATIVE (NEGATIVE); KETONES,URINE NEGATIVE (NEGATIVE); LEUKOCYTE ESTERASE,URINE MODERATE (NEGATIVE); NITRITE,URINE POSITIVE (NEGATIVE); PROTEIN,URINE NEGATIVE (NEGATIVE); URINE SPECIFIC GRAVITY 1.014; UROBILINOGEN,URINE NEGATIVE mg/dL (<2.0)
[2020-05-18 10:30] LABS: ANION GAP 13 (5-19); BLOOD UREA NITROGEN 7 mg/dL (7-20); CALCIUM 9.5 mg/dL (8.4-10.2); CARBON DIOXIDE 23 mmol/L (22-30); CHLORIDE 101 mmol/L (98-107); GLUCOSE 115 mg/dL (75-110); POTASSIUM 3.5 mmol/L (3.6-5.0)
--- NOTE | 2020-05-18 11:37 | RADIOLOGY REPORT (SQ) ---
EXAM DESCRIPTION: CHEST PA/LATERAL IMAGES COMPLETED DATE/TIME: 05/18/2020 9:06 am REASON FOR STUDY: PRE-OP COMPARISON: 06/11/2019 EXAM PARAMETERS: NUMBER OF VIEWS: two views TECHNIQUE: Digital Frontal and Lateral radiographic views of the chest acquired. RADIATION DOSE: NA LIMITATIONS: none FINDINGS: LUNGS AND PLEURA: No opacities, masses or pneumothorax. No pleural effusion. MEDIASTINUM AND HILAR STRUCTURES: No masses or contour abnormalities. HEART AND VASCULAR STRUCTURES: Heart normal size. No evidence for failure. BONES: No acute findings. HARDWARE: None in the chest. OTHER: No other significant finding. IMPRESSION: NO SIGNIFICANT RADIOGRAPHIC FINDING IN THE CHEST. TECHNICAL DOCUMENTATION: JOB ID: [id number] 2010 [employer]- All Rights Reserved Reading location - IP/workstation name: [email or web address]
== END ==
LOC: OD 08:34
PROVIDERS: ATTEND Orthopaedic Surgery
DX: Z01.812 Encounter for preprocedural laboratory examination (principal); Z01.811 Encounter for preprocedural respiratory examination; Z01.810 Encounter for preprocedural cardiovascular examination
CPT/HCPCS: 36415; 71046; 80048; 81001; 85025; 93005; 93010

== ENCOUNTER 2020-06-14 06:53 | Inpatient (IN) | payer MEDICARE, OTHER ==
[2020-06-14] MEDS ORDERED: PROPOFOL INJ 200 MG/20 ML VIAL IV ONE ×2 (07:22→11:00)
[2020-06-14] MEDS ORDERED: TRANEXAMIC ACID INJ/PF 1,000 MG/10 ML SDV ONE ×2 (07:22→11:53)
[2020-06-14] MEDS ORDERED: FENTANYL CITRATE INJ/PF 100 MCG/2 ML AMPUL ONE (07:22)
[2020-06-14] MEDS ORDERED: MIDAZOLAM 2 MG/2 ML INJ ONE (07:22)
[2020-06-14] MEDS ORDERED: CEFAZOLIN INJ 1 GM VIAL ONE (07:49)
[2020-06-14] MEDS ORDERED: OXYCODONE HCL SR 10 MG TABLET PO ONE (07:49)
[2020-06-14] MEDS ORDERED: BUPIVACAINE HCL 0.25% /EPINEPHRINE INJ/PF 30 ML SDV ONE (09:16)
[2020-06-14] MEDS ORDERED: FENTANYL CITRATE INJ/PF 100 MCG/2 ML AMPUL IV PRN ×3 (10:13)
[2020-06-14] MEDS ORDERED: ONDANSETRON HCL INJ/PF 4 MG/2 ML SDV IV PRN ×2 (10:13→11:12)
[2020-06-14] MEDS ORDERED: MEPERIDINE HCL/PF INJ 25 MG/1 ML DISP.SYRIN IV PRN (10:13)
[2020-06-14] MEDS ORDERED: DIPHENHYDRAMINE HCL 50 MG/ML VIAL IV PRN ×2 (10:13→11:12)
[2020-06-14] MEDS ORDERED: VANCOMYCIN HCL INJ 1000 MG VIAL ONE (10:38)
[2020-06-14] MEDS ORDERED: ACETAMINOPHEN 325 MG TABLET PO PRN (11:12)
[2020-06-14] MEDS ORDERED: ONDANSETRON 4 MG TAB.RAPDIS PO PRN (11:12)
[2020-06-14] MEDS ORDERED: TRANEXAMIC ACID INJ/PF 1,000 MG/10 ML SDV IV ONE ×2 (11:12→12:00)
[2020-06-14] MEDS ORDERED: RINGERS SOLUTION,LACTATED 1,000 ML IV PRN (11:12)
[2020-06-14] MEDS ORDERED: ZOLPIDEM TARTRATE 5 MG TABLET PO PRN (11:12)
--- NOTE | 2020-06-14 11:19 | Operative Report ---
Operative Report DATE OF SURGERY: 06/14/20 PREOPERATIVE DIAGNOSIS: Painful, presumed loose right knee arthroplasty OPERATION: Revision right knee arthroplasty SURGEON: ROSEMARIE DORADO ANESTHESIA: Spinal TISSUE REMOVED OR ALTERED: Cultures x2 to microbiology. Implants to CSS ESTIMATED BLOOD LOSS: 75 PROCEDURE: Implants used: Femur: [employer] triathlon size 5 CR cemented femur Tibia: 5 cemented tibia Tibial liner: 13 mm CS insert Patella: Unchanged Procedure with the patient supine on the operating table the right the limb is prepped and draped in a sterile fashion. The limb was elevated for exsanguination and the tourniquet inflated to 280 torr. A standard midline median parapatellar approach the knee is taken. Entering the knee capsule cultures were taken x2 and sent to microbiology. The existing polyethylene is easily removed. Next the femur is exposed and a TPS saw was used to undermine the edges of the femur. It subsequently disimpacted with essentially no bone loss. Attention was next turned to the tibia. Using the TPS saw the edges of the tibial component are from the underlying bone. The extraction jig is then used to remove the tibia with essentially no bone loss. A trial reduction was now performed with a 5 femur 5 tibia and a 11 mm spacer. Unfortunately a 9 mm spacer is not available from the implant associate sales representative today. Hence a decision is made to resect a small amount of proximal tibial bone to accommodate an 11 mm spacer. 2 mm of proximal tibia resected using extra medullary resection guide. All trial implants were removed. Polymethylmethacrylate tobramycin and vancomycin is mixed and used to cement the above implants in place. On adequate curing the cement excess cement was removed the tourniquet was deflated hemostasis obtained the wound is then closed in layers using interrupted Vicryl followed by peggy. A sterile compressive dressing was applied and the patient returned to recovery room in satisfactory condition.
--- NOTE | 2020-06-14 13:06 | RADIOLOGY REPORT (SQ) ---
EXAM DESCRIPTION: KNEE RIGHT 2 VIEWS IMAGES COMPLETED DATE/TIME: 06/14/2020 12:51 pm REASON FOR STUDY: Post OP -Long Cassette in PACU M25.561 PAIN IN RIGHT KNEE COMPARISON: None. NUMBER OF VIEWS: Two view(s). TECHNIQUE: Digital radiographic images of the right knee post-procedure. LIMITATIONS: None. FINDINGS: BONES: No worrisome or unexpected findings post-procedure. DEVICE: Total knee arthroplasty SOFT TISSUES: No worrisome findings. Expected postoperative soft tissue changes. IMPRESSION: SATISFACTORY POSTOPERATIVE RIGHT KNEE. TECHNICAL DOCUMENTATION: JOB ID: [id number] 2010 [employer]- All Rights Reserved Reading location - IP/workstation name: [email or web address]
[2020-06-14] MEDS ORDERED: OXYCODONE HCL IR 5 MG TABLET ONE (13:37)
[2020-06-14] MEDS: IBUPROFEN 800 MG in NORMAL SALINE 250 ML IV SCH ×2 (16:59→21:05)
[2020-06-14] MEDS: OXYCODONE HCL IR 5 MG TABLET PO PRN ×2 (17:10→23:10)
[2020-06-14] MEDS: SENNOSIDES/DOCUSATE 8.6-50 MG 1 EACH TABLET PO SCH (18:18)
[2020-06-14] MEDS: OXYCODONE HCL SR 10 MG TABLET PO SCH (21:04)
[2020-06-14] MEDS ORDERED: VANCOMYCIN HCL 1,000 MG in DEXTROSE 5%-WATER 250 ML IV ONE (23:00)
[2020-06-15] MEDS: OXYCODONE HCL IR 5 MG TABLET PO PRN (05:08)
[2020-06-15] MEDS: IBUPROFEN 800 MG in NORMAL SALINE 250 ML IV SCH (05:09)
[2020-06-15] MEDS ORDERED: PANTOPRAZOLE SODIUM 40 MG TABLET.DR PO SCH (06:00)
[2020-06-15 06:51] LABS: HEMATOCRIT 31.8 % (36.0-47.0); HEMOGLOBIN 11.7 g/dL (12.0-15.5); MEAN CORPUSCULAR HEMOGLOBIN 32.6 pg (27.0-33.4); MEAN CORPUSCULAR HGB CONC 36.8 g/dL (32.0-36.0); MEAN CORPUSCULAR VOLUME 88 fl (80-97); RED CELL DISTRIBUTION WIDTH 13.3 % (11.5-14.0); WHITE BLOOD COUNT 4.6 10^3/uL (4.0-10.5)
[2020-06-15 07:12] LABS: PLATELET COUNT 90 10^3/uL (150-450)
[2020-06-15 07:18] LABS: ANION GAP 9 (5-19); BLOOD UREA NITROGEN 9 mg/dL (7-20); CALCIUM 8.5 mg/dL (8.4-10.2); CARBON DIOXIDE 25 mmol/L (22-30); CHLORIDE 102 mmol/L (98-107); GLUCOSE 122 mg/dL (75-110)
[2020-06-15 07:22] LABS: POTASSIUM 2.8 mmol/L (3.6-5.0)
--- NOTE | 2020-06-15 07:27 | PDOC DISCHARGE SUMMARY ---
Impression - Admit/DC Date/PCP Admission Date/Primary Care Provider: 06/14/20 06:53 ALIYAH SAVAGE Discharge Date: 06/15/20 - Discharge Diagnosis (1) Failure of total knee arthroplasty Is this a current diagnosis for this admission?: Yes - Additional Information Resuscitation Status: Full Code Discharge Diet: Regular Discharge Activity: Balance Activity w/Rest, No Driving, No tub bath Referrals: ROSEMARIE MANCERA MD [ACTIVE STAFF] - 06/27/20 8:40 am Home Medications: Amlodipine Besylate [Norvasc 5 mg Tablet] 5 mg PO DAILY 06/28/19 Estradiol 1 mg PO DAILY 06/28/19 Hydrochlorothiazide [Hydrodiuril 25 mg Tablet] 25 mg PO DAILY 06/28/19 Medroxyprogesterone Acetate [Provera] 2.5 mg PO DAILY 06/28/19 Omeprazole 20 mg PO BID 06/28/19 History of Present Illiness History of Present Illness: ELFEGO GALLEGOS is a 65 year old female Who patient is a 65-year-old white female status post right knee arthroplasty in the past now with progressive right knee pain and functional disability. Patient admitted for elective right knee revision arthroplasty. Hospital Course Hospital Course: Patient is admitted through the operating where she undergoes an uncomplicated right knee revision arthroplasty. She was returned to the floor in satisfactory condition. She makes excellent progress with physical therapy ambulating weightbearing as tolerated basis. Pain control overnight is somewhat problematic but has caught up by the first postoperative morning. Compressive dressing was removed on the first postoperative morning. Underlying incision is clean dry and intact. OpSite applied. Patient is ready for discharge and weightbearing as tolerated basis. Physical Exam Vital Signs: Temp Pulse Resp BP Pulse Ox 36.8 C 74 16 120/80 100 06/14/20 23:50 06/14/20 23:50 06/14/20 23:50 06/14/20 23:50 06/14/20 23:50 Intake & Output 06/14/20 06/15/20 06/16/20 06:59 06:59 06:59 Intake Total 5984 Output Total 50 Balance 5934 General appearance: PRESENT: no acute distress, mild distress Respiratory exam: PRESENT: unlabored Cardiovascular exam: PRESENT: RRR Pulses: PRESENT: +1 pedal pulses bilateral Vascular exam: PRESENT: normal capillary refill GI/Abdominal exam: PRESENT: soft Rectal exam: PRESENT: deferred Musculoskeletal exam: PRESENT: other - Right knee incision well approximated with peggy. Minor swelling. The wound is clean dry and intact. Distal neurovascular examination is intact. Results Laboratory Results: WBC 4.6 10^3/uL (4.0-10.5) 06/15/20 05:28 RBC 3.60 10^6/uL (3.72-5.28) L 06/15/20 05:28 Hgb 11.7 g/dL (12.0-15.5) L 06/15/20 05:28 Hct 31.8 % (36.0-47.0) L 06/15/20 05:28 MCV 88 fl (80-97) 06/15/20 05:28 MCH 32.6 pg (27.0-33.4) 06/15/20 05:28 MCHC 36.8 g/dL (32.0-36.0) H 06/15/20 05:28 RDW 13.3 % (11.5-14.0) 06/15/20 05:28 Plt Count 90 10^3/uL (150-450) L 06/15/20 05:28 COVID-19 Source See comment 06/09/20 09:35 COVID-19 (MARY) Not Detected (Not Detect) 06/09/20 09:35 Impressions: Knee X-Ray 06/14/20 11:14 IMPRESSION: SATISFACTORY POSTOPERATIVE RIGHT KNEE. Plan Plan of Treatment: Patient discharged home with home health services and DME. Patient on a weightbearing as tolerated basis. Follow-up with Dr. Mancera and [facility] for surgery in 2 weeks for staple removal. Time Spent: Less than 30 Minutes Stroke Is this a Stroke Patient?: No Stroke Pt being discharged on Anti-thrombolytic therapy?: Yes Acute Heart Failure Is this a Heart Failure Patient?: No
[2020-06-15] MEDS ORDERED: POTASSIUM CHLORIDE 10 MEQ TABLET.ER PO ONE (08:00)
[2020-06-15] MEDS ORDERED: INFLUENZA QUAD (6MOS+) 2020-21 VAC 0.5 ML SYR IM ONE (09:15)
[2020-06-15] MEDS: SENNOSIDES/DOCUSATE 8.6-50 MG 1 EACH TABLET PO SCH (09:18)
[2020-06-15] MEDS: OXYCODONE HCL SR 10 MG TABLET PO SCH (09:19)
[2020-06-15 09:29] VITALS: BP 120/80
[2020-06-15] MEDS ORDERED: (PENDING PHARMACY ID) (Estradiol [Estradiol] 1 MG) PO SCH (10:00)
[2020-06-15] MEDS ORDERED: HYDROCHLOROTHIAZIDE 25 MG TABLET PO SCH (10:00)
[2020-06-15] MEDS ORDERED: MEDROXYPROGESTERONE ACET 2.5 MG TABLET PO SCH (10:00)
[2020-06-15] MEDS ORDERED: PRENATAL VITAMIN W DHA CAPSULE PO SCH (10:00)
[2020-06-15] MEDS ORDERED: AMLODIPINE BESYLATE 5 MG TABLET PO SCH (10:00)
[2020-06-15] MEDS ORDERED: ASPIRIN 81 MG TABLET, ENT COATED PO SCH (10:00)
--- OUTSIDE RECORDS SUMMARY | 2020-06-15 17:53 | XMS REPORT ---
:1955 Author Organization [facility] Address [facility] [place] [address] [place] [id number] Care Team Providers Name Role Phone Karlene GRAY Attending Clinician Unavailable Allergies, Adverse Reactions, Alerts This patient has no known allergies or adverse reactions. Medications Ordered Filled Start Stop Current Ordering Indication Dosage Frequency Signature Comments Components Medication Medication Date Date Medication? Clinician (SIG) Name Name amlodipine No 1 Q1D amlodipine 5 mg tablet 5 mg Take 1 tablet tablet Take 1 every day tablet by oral every day route for by oral 30 days. route for 30 days. clonazepam No clonazepam 0.5 mg 0.5 mg tablet Take tablet 1 tablet as Take 1 needed by tablet as oral route needed by for 15 oral route days. for 15 days. estradiol 1 No estradiol mg tablet 1 mg Take 1 tablet tablet Take 1 every day tablet by oral every day route. by oral route. hydrochloro No hydrochlor thiazide 25 othiazide mg tablet 25 mg tablet medroxyprog No medroxypro esterone gesterone 2.5 mg 2.5 mg tablet Take tablet 1 tablet Take 1 every day tablet by oral every day route. by oral route. meloxicam No meloxicam 15 mg 15 mg tablet Take tablet 1 tablet Take 1 every day tablet by oral every day route. by oral route. omeprazole No omeprazole 20 mg 20 mg capsule,del capsule,de ayed layed release release Take 1 Take 1 capsule capsule twice a day twice a by oral day by route. oral route. sertraline No 1 Q1D sertraline 50 mg 50 mg tablet Take tablet 1 tablet Take 1 every day tablet by oral every day route for by oral 30 days. route for 30 days. tramadol 50 No tramadol mg tablet 50 mg tablet [facility] No 1 Q1D [facility] (cetirizine (cetirizin ) 10 mg e) 10 mg tablet Take tablet 1 tablet Take 1 every day tablet by oral every day route. by oral route. Voltaren 1 No Voltaren 1 % topical % topical gel APPLY 2 gel APPLY GRAM TO THE 2 GRAM TO AFFECTED THE AREA(S) BY AFFECTED TOPICAL AREA(S) BY ROUTE 4 TOPICAL TIMES PER ROUTE 4 DAY TIMES PER DAY diclofenac No diclofenac 1 % topical 1 % gel APPLY 2 topical GRAM TO THE gel APPLY AFFECTED 2 GRAM TO AREA(S) BY THE TOPICAL AFFECTED ROUTE 4 AREA(S) BY TIMES PER TOPICAL DAY ROUTE 4 TIMES PER DAY aspirin 81 No 1 Q1D aspirin 81 mg mg tablet,nae tablet,del yed release ayed Take 1 release tablet Take 1 every day tablet by oral every day route. by oral route. oxycodone 5 No 1 Q5H oxycodone mg tablet 5 mg Take 1 tablet tablet Take 1 every 4-6 tablet hours by every 4-6 oral route hours by as needed. oral route as needed. sertraline No sertraline 100 mg 100 mg tablet one tablet one tablet tablet daily daily Diflucan No Diflucan 150 mg 150 mg tablet take tablet one tablet take one tablet Mobic 7.5 No 1 Q1D Mobic 7.5 mg tablet mg tablet Take 1 Take 1 tablet tablet every day every day by oral by oral route for route for 30 days. 30 days. triamcinolo No triamcinol ne one acetonide acetonide 0.1 % 0.1 % topical topical cream AAA cream AAA PRN PRN gabapentin No gabapentin 100 mg 100 mg capsule one capsule tablet tid one tablet tid valacyclovi No valacyclov r 1 gram ir 1 gram tablet tablet fluconazole No fluconazol 150 mg e 150 mg tablet tablet nitrofurant No nitrofuran oin toin monohydrate monohydrat /macrocryst e/macrocry als 100 mg stals 100 capsule mg capsule Duexis 800 No 1 TID Duexis 800 mg-26.6 mg mg-26.6 mg tablet Take tablet 1 tablet 3 Take 1 times a day tablet 3 by oral times a route. day by oral route. progesteron No progestero e ne micronized micronized 100 mg 100 mg capsule 1 capsule 1 capsule po capsule po qd qd alprazolam No alprazolam 0.5 mg 0.5 mg tablet 1 tablet 1 tablet po tablet po TID prn TID prn benzonatate No benzonatat 100 mg e 100 mg capsule capsule Problems Condition Condition Condition Status Onset Resolution Last Treatin g Comments Name Details Category Date Date Treatment Clinician Date Difficulty Difficulty Problem Active 2018-08 walking Walking 09-14 00:00: 00 Pain in Pain in Problem Active 2018- right knee Right Knee 1 00:00: 00 Pain in Pain in Problem Active 2018- left knee Left Knee 3-27 00:00: 00 Stiffness Stiffness Problem Active of left of Left 327 knee Knee 00:00: 00 Hormone Hormone Problem Active therapy Therapy 09-16 00:00: 00 Anxiety Anxiety Problem Active 2017-08 1 00:00: 00 Depressive Depressive Problem Active 2017-08 disorder Disorder 08-10 00:00: 00 Seasonal Seasonal Problem Active allergy Allergy 18 00:00: 00 Gastroesoph Gastroesoph Problem Active ageal ageal 718 reflux Reflux 00:00: disease Disease 00 Knee pain Knee Pain Problem Active 02-18 00:00: 00 Low back Low Back Problem Active pain Pain 18 00:00: 00 Menopause Menopause Problem Active 18 00:00: 00 Hypertensiv Hypertensiv Problem Active e disorder e Disorder 08-20 00:00: 00 Osteoarthri Osteoarthri Problem Active tis of knee tis of Knee 08-20 00:00: 00 Procedures Procedure Date / Time Performed Performing Clinician Devic e RADIOLOGIC EXAM KNEE 1 OR 2 VIEWS 2020-05-09 00:00:00 RADIOLOGIC EXAM KNEE 3 VIEWS 2020-03-16 00:00:00 RADIOLOGIC EXAM KNEE 3 VIEWS 2019-08-18 00:00:00 Total Knee Arthroplasty (Surg) 2019-06-28 00:00:00 RADIOLOGIC EXAM, KNEE; COMPLETE, 4 2019-06-08 00:00:00 OR MORE VIEWS RADIOLOGIC EXAM KNEE 3 VIEWS 2018-12-16 00:00:00 Total Knee Arthroplasty (Surg) 2018-10-12 00:00:00 RADIOLOGIC EXAM, KNEE; COMPLETE, 4 2018-09-16 00:00:00 OR MORE VIEWS Knee Arthroscopy with Medial 2018-05-26 00:00:00 Meniscectomy Knee Arthroscopy with Medial 2018-05-26 00:00:00 Meniscectomy (Surg) Other 1995-08-04 00:00:00 Other 1994-08-04 00:00:00 Breast Augmentation 1990-08-04 00:00:00 Tubal Ligation 1985-08-04 00:00:00 Results Test Description Test Time Test Comments Text Results Atomic Results Result Comments fluid culture + gram stain 2020-05-11 00:00:00 Test Item Value Reference Range Comments gram stain (test code = gram stain) gs fluid culture (test code = fluid no aerobic or anaerobic organis ms culture) recovered fluid culture + gram [id number] 00:00:00 Test Item Value Reference Range Comments gram stain (test code = gram gs stain) fluid culture (test code = no aerobic or anaerobic fluid culture) organisms recovered C-reactive [id number] 00:00:00 Test Item Value Reference Range Comments C-reactive protein (test code = C-reactive protein) < 5.0 <10.0 Complete blood count (hemogram) panel - Blood by Automated [id number] 00:00:00 Test Item Value Reference Range Comments white blood count (test code = white blood 5.2 10 3/uL 4.0-1 0.5 count) red blood count (test code = red blood count) 5.00 10 6/uL 3. 72-5.28 hemoglobin (test code = hemoglobin) 15.9 g/dL 12.0-15.5 hematocrit (test code = hematocrit) 44.4 % 36.0-47.0 mean corpuscular volume (test code = mean 89 fL 80-97 corpuscular volume) mean corpuscular hemoglobin (test code = mean 31.8 pg 27 .0-33.4 corpuscular hemoglobin) mean corpuscular HGB conc (test code = mean 35.8 g/dL 32.0 -36.0 corpuscular HGB conc) red cell distribution width (test code = red 13.7 % 11. 5-14.0 cell distribution width) platelet count (test code = platelet count) 111 10 3/uL 150- 450 Erythrocyte sedimentation [id number] 00:00:00 Test Item Value Reference Range Comments erythrocyte sedimentation rate (test code = 10 mm/HR 0-30 erythrocyte sedimentation rate) C-reactive [id number] 00:00:00 Test Item Value Reference Range Comments C-reactive protein (test code = C-reactive protein) < 5.0 <10.0 Complete blood count (hemogram) panel - Blood by Automated [id number] 00:00:00 Test Item Value Reference Range Comments white blood count (test code = white blood 5.2 10 3/uL 4.0-1 0.5 count) red blood count (test code = red blood count) 5.00 10 6/uL 3. 72-5.28 hemoglobin (test code = hemoglobin) 15.9 g/dL 12.0-15.5 hematocrit (test code = hematocrit) 44.4 % 36.0-47.0 mean corpuscular volume (test code = mean 89 fL 80-97 corpuscular volume) mean corpuscular hemoglobin (test code = mean 31.8 pg 27 .0-33.4 corpuscular hemoglobin) mean corpuscular HGB conc (test code = mean 35.8 g/dL 32.0 -36.0 corpuscular HGB conc) red cell distribution width (test code = red 13.7 % 11. 5-14.0 cell distribution width) platelet count (test code = platelet count) 111 10 3/uL 150- 450 Erythrocyte sedimentation [id number] 00:00:00 Test Item Value Reference Range Comments erythrocyte sedimentation rate (test code = 10 mm/HR 0-30 erythrocyte sedimentation rate) Assessments Condition Name Status Diagnosis Date Treating Clinici an Pain in right knee Active 2020-05-16 12:27:23 History of total knee arthroplasty Active 2020-05-18 08 :21:27 Pain in right knee Active 2020-05-15 10:15:14 Osteoarthritis of knee Active 2020-05-08 10:27:33 History of total knee arthroplasty Active 2020-05-08 10 :29:39 Pain in right knee Active 2020-05-09 08:19:21 Pain in right knee Active 2020-03-16 12:35:57 History of total knee arthroplasty Active 2020-03-16 12 :49:25 Pain in right knee Active 2019-08-18 12:53:39 History of total knee arthroplasty Active 2019-08-20 08 :48:39 Pain in left knee Active 2019-08-09 13:25:58 Stiffness of left knee Active 2019-08-09 13:25:58 Difficulty walking Active 2019-08-09 13:25:58 Pain in left knee Active 2019-08-02 13:33:50 Stiffness of left knee Active 2019-08-02 13:33:50 Difficulty walking Active 2019-08-02 13:33:50 Pain in right knee Active 2019-07-23 08:55:30 Pain in left knee Active 2019-07-23 08:56:02 History of total knee arthroplasty Active 2019-07-26 12 :47:50 Pain in left knee Active 2019-07-21 10:06:07 Stiffness of left knee Active 2019-07-21 10:06:07 Difficulty walking Active 2019-07-21 10:06:07 Pain in left knee Active 2019-07-15 13:56:14 Stiffness of left knee Active 2019-07-15 13:56:14 Difficulty walking Active 2019-07-15 13:56:14 Stiffness of left knee Active 2019-07-14 10:45:15 Difficulty walking Active 2019-07-14 10:45:37 Pain in left knee Active 2019-07-14 10:45:49 Pain in right knee Active 2019-07-13 11:30:14 History of total knee arthroplasty Active 2019-07-13 12 :49:38 Pain in right knee Active 2019-06-08 08:48:00 Osteoarthritis of knee Active 2019-06-08 12:33:20 History of total knee arthroplasty Active 2019-06-08 12 :33:27 Pain in left knee Active 2018-12-16 13:53:05 Replacement of total knee joint Active 2018-12-17 08:28 :16 Knee pain Active 2018-10-27 11:13:47 Replacement of total knee joint Active 2018-10-27 12:21 :09 Osteoarthritis of knee Active 2018-10-10 13:53:00 Knee pain Active 2018-09-16 10:40:53 Osteoarthritis of knee Active 2018-09-16 10:43:25 Knee pain Active 2018-07-22 10:50:42 Knee joint effusion Active 2018-07-22 11:29:42 Tear of medial meniscus of knee Active 2018-06-10 09:59 :33 Encounters Start End Encounter Admission Attending Care Care Encounter Date/Time Date/Time Type Type Clinicians Facility Department ID 2019-07-14 [facility] [id number] 11:00:00 PIERRE 2020-05-18 2020-05-18 Sundeep Colemaneret [id number] 00:00:00 00:00:00 [facility] [id number] Yee Mancera MD: [address], [address], [place] [address] , Ph. 2020-05-16 2020-05-16 Sundeep Colemaneret [id number] 00:00:00 00:00:00 [facility] [id number] Yee Mancera MD: [address], [address], [place] [address] , Ph. 2020-05-09 2020-05-09 Arturo Colemanmina Colemaneret [id number] 02 00:00:00 00:00:00 Mathieu, [facility] [id number] DO: [address], [address], [place] [address] , Ph. 2020-03-16 2020-03-16 Sundeep Harris Colemaneret [id number] 02 00:00:00 00:00:00 [facility] [id number] Yee Mancera MD: [address], [address], [place] [address] , Ph. 2019-08-18 2019-08-18 Sundeep Colemaneret [id number] 02 00:00:00 00:00:00 [facility] [id number] Yee Mancera MD: [address], [address], [place] [address] , Ph. 2019-08-09 2019-08-09 Binta Colemaneret [place] [id number] 02 00:00:00 00:00:00 Leslie, [facility] [id number] COB SAWYER: [address] [place] [address] , Ph. 2019-08-02 2019-08-02 Binta Itawamba [place] [id number] 00:00:00 00:00:00 Leslie, [facility] [id number] COB SAWYER: [address] [place] [address] , Ph. 2019-07-23 2019-07-23 Sundeep Colemaneret [id number] 00:00:00 00:00:00 [facility] [id number] Yee Mancera MD: [address] [place] [address] , Ph. [phone] 2019-07-21 Binta Colemaneret [id number] 00:00:00 00:00:00 Nelson, Surgical Surgical [address] COB SAWYER: [address] [place] [address] , Ph. 2019-07-15 2019-07-15 Binta Colemaneret [id number] 00:00:00 00:00:00 Nelson, [facility] [id number] COB SAWYER: [address] [place] [address] , Ph. 2019-07-14 2019-07-14 Mariia Colemaneret [id number] 00:00:00 00:00:00 Calzada, DPT: [facility] [id number] [address] [place] [address] , Ph. 2019-07-13 2019-07-13 Sundeep Colemaneret [id number] 00:00:00 00:00:00 [facility] [id number] Yee Mancera MD: [address] [facility], [address], [place] [address] , Ph. 2019-06-08 2019-06-08 Sundeep Colemaneret [id number] 00:00:00 00:00:00 [facility] [id number] Yee Mancera MD: [address] [facility], [address], [place] [address] , Ph. 2018-12-16 2018-12-16 Sundeep Colemaneret [id number] 00:00:00 00:00:00 [facility] [id number] Yee Mancera Associates MD: [address] [facility], [address], [place] [address] , Ph. 2018-10-27 2018-10-27 Sundeep Colemaneret [id number] 00:00:00 00:00:00 [facility] [id number] Yee Mancera Associates MD: [address] [facility], [address], [facility] [place] [address] , Ph. 2018-10-01 2018-10-01 Sundeep Colemaneret [id number] 00:00:00 00:00:00 [facility] [id number] Yee Mancera Associates MD: [address] [facility], [address], [facility] [place] [address] , Ph. 2018-09-16 2018-09-16 Maxime Rajant [place] [id number] 00:00:00 00:00:00 Pierre Najera [facility] [id number] MD Jordin: Yee Fraire [address] [place] [address] , Ph. [phone] 2018-07-22 2018-07-22 Maxime [place]awamba [place] [id number] 00:00:00 00:00:00 Pierre Najera [facility] [id number] MD Jordin: Yee Fraire [address] [place] [address] , Ph. 2018-06-10 2018-06-10 Maxime [place]amba [place] [id number] 00:00:00 00:00:00 Pierre Najera [facility] [id number] MD Jordin: Yee Fra[address] [place] [address] , Ph. Payers Payer Name Policy Type Policy Number Effective Date Expiration D ate Plan of Treatment Planned Activity Planned Date Details Comments Future Appointment 2020-06-27 08:40:00 Sundeep Mancera, [address]; [address], [place] [address] Social History Smoking Status Start Date Stop Date Never Smoker Vital Signs Vital Name Observation Time Observation Value Comments Height 2020-05-18 00:00:00 69 [in_i] BMI (Body Mass Index) 2020-05-18 00:00:00 26.4 kg/m2 Body Weight 2020-05-18 00:00:00 179 [lb_av] Height 2020-05-16 00:00:00 69 [in_i] BMI (Body Mass Index) 2020-05-16 00:00:00 26.4 kg/m2 Body Weight 2020-05-16 00:00:00 179 [lb_av] Height 2020-05-09 00:00:00 69 [in_i] BMI (Body Mass Index) 2020-05-09 00:00:00 26.4 kg/m2 Body Weight 2020-05-09 00:00:00 179 [lb_av] Height 2020-03-16 00:00:00 69 [in_i] BMI (Body Mass Index) 2020-03-16 00:00:00 26.4 kg/m2 Body Weight 2020-03-16 00:00:00 179 [lb_av] Height 2019-08-18 00:00:00 69 [in_i] BMI (Body Mass Index) 2019-08-18 00:00:00 26.4 kg/m2 Body Weight 2019-08-18 00:00:00 179 [lb_av] Height 2019-07-23 00:00:00 69 [in_i] BP Diastolic 2019-07-13 00:00:00 98 mm[Hg] Height 2019-07-13 00:00:00 69 [in_i] BMI (Body Mass Index) 2019-07-13 00:00:00 26.4 kg/m2 BP Systolic 2019-07-13 00:00:00 144 mm[Hg] Body Weight 2019-07-13 00:00:00 179 [lb_av] Height 2019-06-08 00:00:00 69 [in_i] BMI (Body Mass Index) 2019-06-08 00:00:00 26.4 kg/m2 Body Weight 2019-06-08 00:00:00 179 [lb_av] Height 2018-12-16 00:00:00 69 [in_i] BMI (Body Mass Index) 2018-12-16 00:00:00 26.4 kg/m2 Body Weight 2018-12-16 00:00:00 179 [lb_av] BP Diastolic 2018-10-27 00:00:00 88 mm[Hg] Height 2018-10-27 00:00:00 69 [in_i] BMI (Body Mass Index) 2018-10-27 00:00:00 26.4 kg/m2 BP Systolic 2018-10-27 00:00:00 156 mm[Hg] Body Weight 2018-10-27 00:00:00 179 [lb_av] Height 2018-10-01 00:00:00 69 [in_i] BMI (Body Mass Index) 2018-10-01 00:00:00 26.6 kg/m2 Body Weight 2018-10-01 00:00:00 179.8 [lb_av] BP Diastolic 2018-09-16 00:00:00 101 mm[Hg] Height 2018-09-16 00:00:00 69 [in_i] BMI (Body Mass Index) 2018-09-16 00:00:00 26.6 kg/m2 BP Systolic 2018-09-16 00:00:00 166 mm[Hg] Body Weight 2018-09-16 00:00:00 179.8 [lb_av] BP Diastolic 2018-07-22 00:00:00 79 mm[Hg] Height 2018-07-22 00:00:00 69 [in_i] BMI (Body Mass Index) 2018-07-22 00:00:00 26.6 kg/m2 BP Systolic 2018-07-22 00:00:00 116 mm[Hg] Body Weight 2018-07-22 00:00:00 179.8 [lb_av] BP Diastolic 2018-06-10 00:00:00 78 mm[Hg] Height 2018-06-10 00:00:00 69 [in_i] BMI (Body Mass Index) 2018-06-10 00:00:00 26.6 kg/m2 BP Systolic 2018-06-10 00:00:00 113 mm[Hg] Body Weight 2018-06-10 00:00:00 179.8 [lb_av] Hospital Discharge Instructions 1. Osteoarthritis of knee 2. History of total knee arthroplasty XR, knee, 1 or 2 view 3. Pain inright knee C-reactive protein, quantitative CBC ESR (erythrocyte sedimentation rate), blood culture + sensitivity, body fluid - right knee synovial fluid no po antibiotics Discussion Note: None recorded. Patient educational handouts: No information available.1. History of total knee arthroplasty 2. Pain in right knee XR, knee, 3 view Discussion Note: None recorded. Patient educational handouts: No information available.1. Pain in right knee 2. History of total knee arthroplasty Discussion Note: None recorded. Patient educational handouts: No information available.1. Pain in right knee XR, knee, 4 or more view 2. Osteoarthritis of knee knee arthritis: care instructions 3. History of total knee arthroplasty Discussion Note: None recorded.1. Pain in left knee XR, knee, 3 view 2. Replacement of total knee joint Discussion Note: None recorded. Patient educational handouts: No information available.1. Knee pain 2. Osteoarthritis of knee knee arthritis: care instructions XR, knee, 4 or moreview Discussion Note: None recorded.1. Knee pain Voltaren 1 % topical gel 2. Knee joint effusion Discussion Note: None recorded. Patient educational handouts: No information available.1. Tear of medial meniscus of knee physical therapy referral - Please call patient to schedule appointment date and time. Patient is s/p left knee scope with PMM, PLM and chondroplasty 05/26/18. Discussion Note: None recorded. Patient educational handouts: No information available.
[2020-06-16] MEDS ORDERED: INFLUENZA QUAD (6MOS+) 2020-21 VAC 0.5 ML SYR IM ONE (08:00)
== END 2020-06-15 09:52 | disposition home or self-care (01) | DRG 465 ==
LOC: INOR 06:53 → 4S 15:07
PROVIDERS: ADMIT Orthopaedic Surgery; ATTEND Orthopaedic Surgery
PROC: 0SRC0N9 Replacement of Right Knee Joint with Patellofemoral Synthetic Substitute, Cemented, Open Approach (ICD-10-PCS; 2020-06-14)
PROC: 0SPC0NZ Removal of Patellofemoral Synthetic Substitute from Right Knee Joint, Open Approach (ICD-10-PCS; principal; 2020-06-14 09:00)
DX: T84.032A Mechanical loosening of internal right knee prosthetic joint, initial encounter (principal); Y83.8 Other surgical procedures as the cause of abnormal reaction of the patient, or of later complication, without mention of misadventure at the time of the procedure
CPT/HCPCS: 01402; 36415; 80048; 85027; 87070; 87075; 87205; 87635; 90471; 90686; 94799; C1713; C1776; C9803; G0008; J0690; J1741; J2250; J2704; J3010; J3370; J3490; J7050; J7060; L1830